=== PATIENT | female | born 1955 | race Hispanic/Latino ===

== ENCOUNTER 2017-09-21 12:40 | Emergency (ER) | payer OTHER, BC ==
[2017-09-21 12:44] VITALS: BP 154/88; PULSE 75; RESP 16; TEMP 97.1; O2SAT 99
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
== END 2017-09-21 15:31 | disposition home or self-care (01) ==
LOC: H.ER 12:40
DX: M06.9 Rheumatoid arthritis, unspecified (principal); I10 Essential (primary) hypertension
CPT/HCPCS: 96374; 99284; J1885